=== PATIENT | male | born 1990 | race Caucasian/White ===

== ENCOUNTER 2018-03-05 05:28 | Emergency (ER) | payer OTHER ==
[~2018-03-05] VITALS: Ht 185.4 cm; Wt 179.6 kg
[2018-03-05 05:35] VITALS: Ht 185.4 cm; Wt 179.6 kg
[2018-03-05 06:22] VITALS: BP 161/108
== END 2018-03-05 06:22 | disposition home or self-care (01) ==
LOC: ED 05:28
DX: S43.004A Unspecified dislocation of right shoulder joint, initial encounter (principal); X58.XXXA Exposure to other specified factors, initial encounter; Y93.89 Activity, other specified; Y92.89 Other specified places as the place of occurrence of the external cause; Y99.8 Other external cause status